=== PATIENT | male | born 1945 | race Hispanic/Latino ===

== ENCOUNTER → 2018-05-04 | Outpatient (CLI) | payer BC, MEDICARE ==
[~2018-05-04] MED LIST: PROPOFOL IV EMULSION 10 MG/ML 20 ML VIAL ONE
--- NOTE | 2018-05-04 15:44 | Diagnostic Imaging Report ---
PROCEDURE:US RETROPERITONEAL ( KIDNEY ). COMPARISON:Patients [facility], [place], US RETROPERITONEAL ( KIDNEY )., 01/02/2016, 14:37. Patients [facility], US, US RETROPERITONEAL ( KIDNEY )., 09/20/2016, 13:21. INDICATIONS:Calculus Of Kidney TECHNIQUE: Odonnell-scale and color sonographic images of the kidneys and bladder where obtained in transverse and longitudinal planes. FINDINGS: RIGHT KIDNEY: Length: 11.3 cm. Cysts: 3.6 x 2.8 x 3.4 cm arising from the upper pole containing a septation and a soft tissue component or artifact In the inferior aspect. Previously, this measured 2.0 x 2.3 x 2.7 cm. No soft tissue component was identified on previous exam. Solid masses: None Stones: None. Scattered tiny vascular calcifications in the renal sinus. Hydronephrosis: None Echogenicity: Mildly increased. The cortex is lobulated. LEFT KIDNEY: Length: 12.1 cm Cysts: 10 x 10 x 9 mm in the lateral interpolar cortex (previously, 7 x 9 x 7 mm) Solid masses: None Stones: Scattered tiny calcifications in the renal sinus. Interpolar calculus measures 4 mm. Hydronephrosis: None Echogenicity: Mildly increased. The cortex is lobulated. Bladder: Under distended. Mild circumferential mural thickening. Bladder jets are visible. Prostate: 2.0 x 3.1 x 2.4 cm. Survey images of the liver and spleen demonstrate no focal abnormality. CONCLUSION: 1. Enlarging septated cyst in the upper pole of the right kidney. A soft tissue component may have developed. Recommend further characterization with CT or MRI dedicated to the kidneys. 2. Enlarging unilocular cyst in the left kidney. 3. Left intrarenal calculus. No obstructive uropathy. 4. Hyperechoic echotexture suggestive of medical renal disease. Dictated by: Mariano Mantilla M.D. on 05/04/2018 at 15:49 Electronically approved by: Mariano Mantilla M.D. on 05/04/2018 at 15:49
== END ==
LOC: US 14:22
PROVIDERS: ATTEND Urology
DX: N20.0 Calculus of kidney (principal)
CPT/HCPCS: 76770

== ENCOUNTER → 2018-05-16 | Outpatient (CLI) | payer BC ==
[2018-05-16 11:17] LABS: BLOOD UREA NITROGEN 18 mg/dL (7-26); BUN/CREATININE RATIO 16 (6-25); CREATININE, SERUM 1.15 mg/dL (0.72-1.25); EST GLOMERULAR FILTRATION RATE > 60 ML/MIN (60-)
--- NOTE | 2018-05-16 13:04 | Diagnostic Imaging Report ---
PROCEDURE: CT ABDOMEN WITH AND WITHOUT CONTRAST TECHNIQUE: CT of the abdomen was performed with renal protocol. Non contrast images obtained from the diaphragm to the lower abdomen. Subsequently, arterial, portal venous, and delayed images were obtained through the kidneys after administration of 100 cc of Isovue 370. Oral contrast administered with 900 cc of water. Coronal and sagittal multiplanar reformations were obtained. COMPARISON: Renal ultrasound 05/04/2018. INDICATIONS: NEOPLASM OF KIDNEY FINDINGS: LOWER THORAX: Patchy dependent atelectasis. Aortic annular calcification. Coronary atherosclerosis. HEPATOBILIARY: No focal hepatic lesions. No biliary ductal dilatation. SPLEEN: No splenomegaly. PANCREAS: No focal masses or ductal dilatation. ADRENALS: No adrenal nodules. KIDNEYS: There is a 3.1 cm hypodense cyst (7 HU) in the upper pole of the right kidney, which demonstrated no evidence of solid component, enhancement, or calcification. Findings consistent with a simple cyst. No hydronephrosis, stones, or solid mass lesions. Subcentimeter lesion in the left kidney, too small to characterize, likely representing a cyst. No evidence of urothelial lesion in the kidneys or proximal ureters on delayed images. PERITONEUM / RETROPERITONEUM: No free air or fluid. LYMPH NODES: No lymphadenopathy. VESSELS: Atherosclerotic calcifications of the abdominal aorta. Ectatic infrarenal abdominal aorta measuring 2.7 cm containing some mural thrombus. GI TRACT: Visualized portions of the bowel demonstrate no distention or wall thickening. BONES AND SOFT TISSUES: Unremarkable. IMPRESSION: Right upper pole cyst, characterized as simple on CT without evidence of renal malignancy. However based on the sonographic appearance of the cyst containing a septation, a follow-up ultrasound is suggested in 6 months or as per protocol. Ectatic infrarenal abdominal aorta measuring 2.7 cm. Dictated by: XOCHITL FORDE M.D. on 05/16/2018 at 13:10 Electronically approved by: XOCHITL FORDE M.D. on 05/16/2018 at 13:10
== END ==
LOC: CT 10:34
PROVIDERS: ATTEND Urology
DX: D41.00 Neoplasm of uncertain behavior of unspecified kidney (principal)
CPT/HCPCS: 36415; 74170; 82565; 84520